=== PATIENT | female | born 1965 | race Caucasian/White ===

== ENCOUNTER 2019-03-28 10:38 | Inpatient (IN) ==
--- NOTE | 2019-03-21 12:44 | EKG Report ---
Test Performed on : 03/21/2019 12:19:36 PM Test Reason : pat Blood Pressure : / mmHG Vent. Rate : 060 BPM Atrial Rate : 060 BPM P-R Int : 252 ms QRS Dur : 108 ms QT Int : 428 ms P-R-T Axes : 026 003 012 degrees QTc Int : 428 ms Sinus rhythm. with 1st degree AV block. Incomplete right bundle branch block Cannot rule out Anteroseptal infarct (cited on or before 14-APR-2018) Abnormal ECG When compared with ECG of 14-APR-2018 08:17, No significant change was found Confirmed by Palomo Mahmood MD ([id number]) on 03/23/2019 8:55:40 AM
--- NOTE | 2019-03-21 13:22 | Diag Imaging Result Doc PS360 ---
EXAM: CHEST-2 VIEWS 03/21/2019 HISTORY: pat TECHNIQUE: PA and lateral chest COMMENT: There is no evidence of acute cardiac or pulmonary disease. Compared to 04/14/2018 there has been no significant change in the appearance of the chest. IMPRESSION: No evidence of acute disease. Electronically signed by Chuck Kraft 03/21/2019 1:20 PM
[2019-03-21 13:59] LABS: HEMATOCRIT 46.1 % (37.0-47.0); HEMOGLOBIN 15.5 g/dL (12.0-16.0); MCH 30.2 PG (27-31); MCHC 33.6 g/dL (33-37); MCV 89.9 FL (81-99); MPV 10.7 FL (7.4-10.4); RBC 5.13 XMIL (4.2-5.4); RDW 13.3 % (11.5-14.5); WBC 10.56 X1000 (4.8-10.8)
[2019-03-21 14:12] LABS: CALCIUM 9.2 mg/dL (8.8-10.2); CREATININE 1.1 mg/dL (0.5-0.9); POTASSIUM 2.8 mmol/L (3.5-5.1)
[2019-03-28] MEDS ORDERED: NARCAN ONE (11:02)
[2019-03-28] MEDS ORDERED: LR 1,000 ML ONE ×3 (11:22→15:47)
[2019-03-28] MEDS ORDERED: VERSED ONE (11:28)
[2019-03-28] MEDS ORDERED: XYLOCAINE-MPF 2% ONE (11:28)
[2019-03-28] MEDS ORDERED: NORCURON ONE (11:29)
[2019-03-28] MEDS ORDERED: SODIUM CHLORIDE 0.9% 10 ML ONE (11:29)
[2019-03-28] MEDS ORDERED: FENTANYL ONE (11:29)
[2019-03-28] MEDS ORDERED: DIPRIVAN 1% ONE (11:29)
[2019-03-28] MEDS ORDERED: QUELICIN (DOSE) ONE (11:29)
[2019-03-28] MEDS ORDERED: KEFZOL 1 GM/D5W 1 GM/50 ML IVPB ONE (11:44)
[2019-03-28] MEDS ORDERED: MARCAINE 0.25% PF/EPI 1:200,000 ONE (12:15)
[2019-03-28] MEDS ORDERED: XYLOCAINE 2% JELLY ONE (13:36)
[2019-03-28] MEDS ORDERED: LTA KIT ONE (13:36)
[2019-03-28] MEDS ORDERED: EXPAREL 1.3% ONE ×2 (13:40→14:04)
[2019-03-28] MEDS ORDERED: ZOFRAN ONE (13:51)
[2019-03-28] MEDS ORDERED: DECADRON ONE (13:51)
[2019-03-28 13:52] LABS: URINE SOURCE CATH
[2019-03-28] MEDS ORDERED: MARCAINE 0.5% PF ONE (14:02)
[2019-03-28 14:04] LABS: COLOR YELLOW; TURBIDITY URINE CLEAR (CLEAR)
[2019-03-28 14:05] LABS: BILIRUBIN URINE NEGATIVE (NEGATIVE); BLOOD URINE NEGATIVE (NEGATIVE); GLUCOSE URINE >1000 mg/dL (NEGATIVE); KETONE URINE 10 mg/dL (NEGATIVE); LEUKOCYTES URINE NEGATIVE (NEGATIVE); NITRITE URINE NEGATIVE (NEGATIVE); PROTEIN URINE TRACE mg/dL (NEGATIVE); SP GRAVITY URINE 1.023; UROBILINOGEN URINE NORMAL (NORMAL)
[2019-03-28 14:06] LABS: UR EPITHELIAL CELLS <10 /HPF (<10); URINE BACTERIA NEGATIVE /HPF; URINE RBC <10 /HPF (<10); URINE WBC <10 /HPF (<10)
[2019-03-28] MEDS ORDERED: ROBINUL ONE (14:21)
[2019-03-28] MEDS ORDERED: NEOSTIGMINE ONE (14:21)
[2019-03-28] MEDS: OFIRMEV 1000 MG/ISOTONIC SOLN 1,000 MG/100 ML BOTTLE ONE ×2 (15:20→16:28)
--- NOTE | 2019-03-28 15:43 | Diag Imaging Result Doc PS360 ---
EXAM: CHEST-PORTABLE HISTORY: post thoracotomy TECHNIQUE: Portable chest COMPARISON: 03/21/2019 FINDINGS: There is a right-sided chest tube and right lateral skin nai. Small apical pneumothorax on the right. Mild pulmonary edema. Questionable tiny left pleural effusion. IMPRESSION: Right-sided chest tube with a small apical pneumothorax. Electronically signed by Yash Salazar 03/28/2019 3:41 PM
[2019-03-28] MEDS ORDERED: ULTRAM PO PRN (16:05)
[2019-03-28] MEDS ORDERED: ZOFRAN IV PRN (16:05)
[2019-03-28] MEDS: DILAUDID IV PRN ×4 (16:25→23:20)
[2019-03-28] MEDS: LR 1,000 ML IV SCH (16:42)
[2019-03-28] MEDS: DUONEB (A & A) INH SCH ×3 (16:58→23:32)
[2019-03-28] MEDS ORDERED: DILAUDID IV ONE (17:00)
[2019-03-28] MEDS: OFIRMEV 1000 MG/ISOTONIC SOLN 1,000 MG/100 ML BOTTLE IV SCH (20:02)
[2019-03-28] MEDS: KEFZOL 1 GM/D5W 1 GM/50 ML IVPB IV SCH (20:02)
[2019-03-28] MEDS ORDERED: NEURONTIN PO SCH (21:00)
[2019-03-28] MEDS ORDERED: PRAVACHOL PO SCH (21:00)
[2019-03-28] MEDS ORDERED: OFIRMEV 1000 MG/ISOTONIC SOLN 1,000 MG/100 ML BOTTLE IV SCH (21:00)
[2019-03-28] MEDS ORDERED: AMARYL PO SCH (21:00)
[2019-03-28] MEDS ORDERED: DESYREL PO SCH (21:00)
[2019-03-28] MEDS ORDERED: BENADRYL PO SCH (21:00)
[2019-03-28] MEDS ORDERED: PERIDEX MT SCH (21:00)
--- NOTE | 2019-03-28 21:12 | OPERATIVE NOTE ---
PROCEDURE DATE: 03/28/2019 PROCEDURE: 1. Bronchoscopy; right thoracoscopy. 2. Right lateral thoracotomy with wedge excision of right lower lung mass. SURGEON: Luis Gallegos MD. DIRECTOR CORPORATE COMPLIANCE: SHANIQUE Hernandez. PREOPERATIVE DIAGNOSIS: Nodule right lower lobe. POSTOPERATIVE DIAGNOSIS: Granuloma right lower lobe. INDICATIONS: A 53-year-old with a new mass on the surface of the right lower lobe. She is a smoker so there was some concern of whether this represented a cancer. DESCRIPTION OF PROCEDURE: Satisfactory general endotracheal anesthesia was achieved. We introduced the flexible bronchoscope into the trachea. We passed the scope into the left main stem. We looked at the upper and lower lobe orifices and they looked normal. We passed the scope into the right side, looked at the upper lobe, middle lobe and lower lobe orifices and all appeared normal. The patient was then converted to a double lumen tube. Anesthesia was satisfied with the placement of the tube into the left main stem. We then placed the patient in the decubitus position with the right side up. The right lateral chest was prepped and draped in a sterile fashion. We chose a spot 3 fingerbreadths below the tip of the scapula and marked it. We then made 3 incisions along the course of this line as entrances for our Thoracoports. The lung been clamp so that it would decompress. We then looked on the surface of the lung and the lower lobe and we could not identify for certain the area of concern after careful inspection throughout the course of the lower lobe. So we decided to switch to a thoracotomy so that we could palpate the lung. We then removed our Thoracoports and anesthetized the skin with 0.25 Marcaine with epinephrine and made incision between our most posterior and middle axillary Thoracoport incisions. We carried the incision through the subcutaneous tissue. We carried it through the latissimus muscle and some of the rhomboid. We then chose what we felt to be the 6th intercostal space. We incised the intercostal muscle and entered the pleural space. We then cleaned off the 6th rib. So that we would not injure the intercostal nerve and we placed our rib oiler helper and spread the ribs carefully. We opened enough to enter an introducer our hand into the pleural space. After palpating the lower lobe. I did identify the area of concern. We did grasped it with a lung clamp and lifted up and used the Endo THEODORA purple cartridge 60 mm long to staple it until we wedged out the mass from the lower lobe. It was sent for frozen section. 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 There was no evidence of malignancy. So, we obtained some ProGEL and sprayed it along the course of the staple line. We placed a 32 chest tube through our anterior Thoracoport site straight in posteriorly to the area of the wedge resection. We secured it at the skin level with 0 silk. We then found 2 spots to drill holes through the 6th and 7th ribs anteriorly and posteriorly and then we passed #2 Surgidac stitch through it. We then began re- inflating the lung and reinflated satisfactorily. We used a rib reapproximator to approximate the ribs and tied the permanent suture that was passed through the ribs. We then used our Exparel to inject along the course of the intercostal nerves on the 5th, 6th and 7th ribs. We also then closed the latissimus muscle with a running 1 Polysorb. The rhomboids were closed with #1 Polysorb interrupted stitches. We used the rest of the Exparel in the subcutaneous tissue along the course of the incision. We then closed the fascia with a 0 Polysorb and the skin was closed with nai. Sterile dressing was applied. The chest tube was attached to the Pleur-evac. She tolerated the procedure satisfactory and was sent to the recovery room in satisfactory condition. cc: Dr. Martha Gallegos MD
[2019-03-29] MEDS: DILAUDID IV PRN ×6 (02:00→23:04)
[2019-03-29] MEDS: OFIRMEV 1000 MG/ISOTONIC SOLN 1,000 MG/100 ML BOTTLE IV SCH ×4 (02:14→20:56)
[2019-03-29] MEDS: DUONEB (A & A) INH SCH ×5 (03:14→23:24)
[2019-03-29] MEDS: KEFZOL 1 GM/D5W 1 GM/50 ML IVPB IV SCH ×3 (04:14→20:47)
[2019-03-29] MEDS: LR 1,000 ML IV SCH (04:14)
[2019-03-29 06:25] LABS: BASO# 0.02 X1000 (0.0-0.2); BASO% 0.1 % (0.0-0.8); EOS# 0.05 X1000 (0.0-0.7); EOS% 0.4 % (0.0-10.0); HEMOGLOBIN 14.3 g/dL (12.0-16.0); IMM GRAN# 0.03 X1000 (0.0-0.04); IMM GRAN% 0.2 % (0.0-0.5); LYMPH# 1.43 X1000 (1.2-3.4); LYMPH% 10.2 % (20.5-51.1); MCH 30.3 PG (27-31); MCHC 33.3 g/dL (33-37); MCV 91.1 FL (81-99); MONO% 6.4 % (1.7-9.3); MPV 10.7 FL (7.4-10.4); NEUT# 11.64 X1000 (1.4-6.5); NEUT% 82.7 % (42.2-75.2); PLT 205 X1000 (130-400); RBC 4.72 XMIL (4.2-5.4); WBC 14.07 X1000 (4.8-10.8)
[2019-03-29 06:47] LABS: AGAP 12; BUN 13 mg/dL (8-22); CALCIUM 8.7 mg/dL (8.8-10.2); CHLORIDE 101 mmol/L (98-107); COSMO 281; CREATININE 0.7 mg/dL (0.5-0.9); ESTIMATED GFR > 60; GLUCOSE 150 mg/dL (70-104); SODIUM 139 mmol/L (136-145); TCO2 26 mmol/L (25-35)
[2019-03-29] MEDS ORDERED: LR 1,000 ML IV SCH (06:48)
--- NOTE | 2019-03-29 07:52 | Diag Imaging Result Doc PS360 ---
EXAM: CHEST-PORTABLE INDICATION: post thoracotomy TECHNIQUE: One view COMPARISON: 03/28/2019 FINDINGS: The right chest tube is in stable position. The trace apical pneumothorax seen previously cannot be identified on the current study. Mild interstitial edema and pulmonary venous congestion is approximately stable. No new consolidation is identified. Cardiac silhouette is stable. IMPRESSION: Nonvisualization of the trace pneumothorax at the right lung apex seen previously. Stable chest, otherwise. Electronically signed by Nick Cruz 03/29/2019 7:49 AM
[2019-03-29] MEDS ORDERED: FOLIC ACID PO SCH (09:00)
[2019-03-29] MEDS ORDERED: HYZAAR 50/12.5 MG PO SCH (09:00)
[2019-03-29] MEDS ORDERED: NON-FORMULARY MED (Dapagliflozin Propanediol [Farxiga] 0 MG) PO SCH (09:00)
[2019-03-29] MEDS ORDERED: JANUVIA PO SCH (09:00)
[2019-03-29] MEDS ORDERED: TOPROL XL PO SCH (09:00)
[2019-03-29] MEDS ORDERED: KLOR-CON PO SCH (09:00)
[2019-03-29] MEDS ORDERED: NORVASC PO SCH (09:00)
[2019-03-29] MEDS ORDERED: PRILOSEC PO SCH (09:00)
--- NOTE | 2019-03-29 11:15 | GENERAL SURGERY PROGRESS NOTE ---
DATE: 03/29/2019 SUBJECTIVE: She is postop day 1 after left thoracotomy and wedge excision of a mass in the right lower lobe. She is doing generally well. OBJECTIVE: Her heart rate is 60, blood pressure is 92/60. Her O2 saturation is 99%. She has bilateral breath sounds. She has no air leak noted on Pleur-Evac. She is hungry. Her urine output has been acceptable through the night. Her chest tube has put out 215 mL of serosanguineous fluid. LABORATORY DATA: [place] [address], hemoglobin 14.3, hematocrit 43. PLAN: The plan will be to give her solid food today. We will get a chest x-ray this morning. I will plan to move her out to a regular room. Hopefully, we can get her chest tube out by tomorrow. cc: Luis Gallegos MD
[2019-03-29] MEDS ORDERED: ULTRAM PO PRN (13:35)
[2019-03-29] MEDS ORDERED: MISC. PHARMACY COMMUNICATION SCH (14:30)
[2019-03-29] MEDS ORDERED: NS 500 ML ONE (14:53)
[2019-03-29] MEDS: PRAVACHOL PO SCH (20:56)
[2019-03-29] MEDS: BENADRYL PO SCH (20:56)
[2019-03-29] MEDS: NEURONTIN PO SCH (20:57)
[2019-03-29] MEDS: DESYREL PO SCH (20:58)
[2019-03-29] MEDS ORDERED: KEFZOL 1 GM/D5W 1 GM/50 ML IVPB IV SCH (21:00)
[2019-03-29] MEDS: ZOFRAN IV PRN (23:04)
[2019-03-30] MEDS: OFIRMEV 1000 MG/ISOTONIC SOLN 1,000 MG/100 ML BOTTLE IV SCH ×2 (03:44→08:31)
[2019-03-30] MEDS: DUONEB (A & A) INH SCH ×6 (03:46→23:52)
[2019-03-30] MEDS: DILAUDID IV PRN ×4 (03:52→20:58)
[2019-03-30] MEDS: ZOFRAN IV PRN (03:52)
[2019-03-30] MEDS: KEFZOL 1 GM/D5W 1 GM/50 ML IVPB IV SCH ×2 (05:33→07:29)
[2019-03-30] MEDS: PRILOSEC PO SCH ×2 (05:34→07:29)
--- NOTE | 2019-03-30 07:19 | Diag Imaging Result Doc PS360 ---
EXAM: CHEST-PORTABLE HISTORY: post thoracotomy TECHNIQUE: Portable chest single view COMPARISON: 03/29/2019 FINDINGS: No change in the right-sided chest tube. There are lateral skin nai. No pneumothorax identified. Mild increased interstitial markings in the lower lungs. These are fairly similar to the prior exam. Trace pleural fluid. IMPRESSION: No significant interval change. Electronically signed by Yash Salazar 03/30/2019 7:17 AM
[2019-03-30] MEDS: AMARYL PO SCH (08:27)
[2019-03-30] MEDS: KLOR-CON PO SCH (08:28)
[2019-03-30] MEDS: JANUVIA PO SCH (08:28)
[2019-03-30] MEDS: FOLIC ACID PO SCH (08:29)
[2019-03-30] MEDS: TOPROL XL PO SCH (08:30)
[2019-03-30] MEDS: NORVASC PO SCH (08:30)
[2019-03-30] MEDS: HYZAAR 50/12.5 MG PO SCH (08:30)
--- NOTE | 2019-03-30 08:48 | GENERAL SURGERY PROGRESS NOTE ---
DATE: 03/30/2019 SUBJECTIVE: She is postop day 2 after thoracotomy and wedge excision of a mass, which was a granuloma. OBJECTIVE: She is afebrile. Hemodynamics are good. Bilateral breath sounds are present. IMAGING: Her chest x-ray shows no pneumothorax. She has no air leak. PLAN: The plan today is removal of her chest tube, removal of her Corley, and have her ambulate. We hope to send her home on , 03/31/2019 if everything continues well. cc: Luis Gallegos MD
[2019-03-30] MEDS: NON-FORMULARY MED (Dapagliflozin Propanediol [Farxiga] 0 MG) PO SCH (09:14)
[2019-03-30] MEDS: NORCO-7.5 PO PRN ×2 (10:59→18:13)
[2019-03-30] MEDS: BENADRYL PO SCH (20:58)
[2019-03-30] MEDS: PRAVACHOL PO SCH (20:58)
[2019-03-30] MEDS: NEURONTIN PO SCH (20:58)
[2019-03-30] MEDS: DESYREL PO SCH (20:58)
[2019-03-31] MEDS: NORCO-7.5 PO PRN ×3 (00:53→12:36)
[2019-03-31] MEDS: DUONEB (A & A) INH SCH ×3 (03:30→11:25)
[2019-03-31] MEDS: PRILOSEC PO SCH ×2 (05:40→06:07)
[2019-03-31] MEDS: KLOR-CON PO SCH (09:09)
[2019-03-31] MEDS: NON-FORMULARY MED (Dapagliflozin Propanediol [Farxiga] 0 MG) PO SCH (09:09)
[2019-03-31] MEDS: JANUVIA PO SCH (09:10)
[2019-03-31] MEDS: AMARYL PO SCH (09:10)
[2019-03-31] MEDS: FOLIC ACID PO SCH (09:10)
[2019-03-31] MEDS: TOPROL XL PO SCH (09:11)
[2019-03-31] MEDS: NORVASC PO SCH (12:39)
[2019-03-31] MEDS: HYZAAR 50/12.5 MG PO SCH (12:39)
[2019-03-31 12:40] VITALS: BP 106/65
--- NOTE | 2019-03-31 15:35 | GENERAL SURGERY PROGRESS NOTE ---
DATE: 03/31/2019 She is afebrile, tolerating solid food. Her wound is fine. She has good breath sounds bilaterally. PLAN: The plan is to discharge her home. We discussed her wound care. She will return to see me in a week for staple removal. cc: Luis Gallegos MD
--- NOTE | 2019-04-02 13:39 | DISCHARGE SUMMARY ---
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 PRIMARY PROCEDURE: Right thoracoscopy, right thoracotomy with wedge excision of the mass. 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 She was brought to the operating room and we did a bronchoscopy followed by thoracoscopy. We could not identify the lesion for certain on thoracoscopy, so we did arrive posterior thoracotomy. We identified the lesion medially and wedged it out. We use ProGEL on the staple line to prevent any air leak. One 32 chest tube was placed. Postoperatively, she was sent to the intensive care unit the first night and did very well. The second night she did well as well. We removed her chest tube because of no air leak. Her right lung was ventilated satisfactorily. Her pathology on frozen section just showed a granuloma and no malignancy. So by 03/31/2019, she was doing well. Her wounds were fine. Her chest tube had been removed and so she could be discharged home. She will resume her usual medications. We did write her some pain medication as well. cc: Luis Gallegos MD
== END 2019-03-31 12:41 | disposition home or self-care (01) | DRG 165 ==
LOC: OPS 10:38 → EDSTATUS 13:00 → ICU 15:51 → 4N 03-29 10:22
PROVIDERS: ADMIT Surgery; ATTEND Surgery